=== PATIENT | male | born 1970 | race Caucasian/White ===

== ENCOUNTER 2022-02-21 16:44 | Emergency (ER) | payer OTHER ==
[~2022-02-21] VITALS: Ht 172.7 cm; Wt 102.1 kg
== END 2022-02-21 17:11 | disposition home or self-care (01) ==
LOC: FSED 16:44
DX: F41.9 Anxiety disorder, unspecified (principal); Z98.890 Other specified postprocedural states; F17.210 Nicotine dependence, cigarettes, uncomplicated
CPT/HCPCS: 99282